=== PATIENT | male | born 1995 | race Two or more races ===

== ENCOUNTER 2024-11-27 16:30 | Emergency (ER) | payer MEDICAID, OTHER ==
[~2024-11-27] VITALS: Ht 175.3 cm; Wt 108.9 kg
--- NOTE | 2024-11-27 16:40 | ED.PDOC ---
General HPI Comments This is a 29 year old male presenting to the ED with chief complaint of dysuria. Patient reports that he has been experiencing dysuria with associated chills since yesterday. Patient relays that he had a vasectomy performed on 11/15, which went well and he has been keeping the surgical site clean. Patient denies any hematuria, abdominal pain, fever, dizziness, or N/V. Time Seen by MD: 16:37 Reviewed notes: Nurses Notes, Medications, Allergies Allergies: Coded Allergies: NO KNOWN ALLERGIES (Unverified , 11/27/24) Information Source: Patient Mode of Arrival: Ambulatory Severity: Moderate Timing: Days Duration: Since onset Prehospital treatment: None Onset: Spontaneous Symptoms: Dysuria, Other (Chills) History of: Recent post-op Location: None Penile discharge: None Modifying factors: None associated signs and symptoms: Dysuria Past Medical History PAST MEDICAL HISTORY: Denies Surgical History (Other): Vasectomy Family History Family History: Reviewed,noncontributory to illness Social History Smoker: Non-Smoker Alcohol: Denies ETOH Use Drugs: Denies Drug Use Lives In: Home Constitutional: reports: chills; denies: diaphoresis, fatigue, fever, malaise, sweats, weakness, others EENTM: denies: blurred vision, double vision, ear bleeding, ear discharge, ear drainage, ear pain, ear ringing, eye pain, eye redness, hearing loss, mouth pain, mouth swelling, nasal discharge, nose bleeding, nose congestion, nose pain, photophobia, tearing, throat pain, throat swelling, voice changes, others Respiratory: denies: cough, hemoptysis, orthopnea, SOB at rest, shortness of breath, SOB with excertion, stridor, wheezing, others Cardiovascular: denies: chest pain, dizzy spells, diaphoresis, Dyspnea on exertion, edema, irregular heart beat, left arm pain, lightheadedness, palpitations, PND, syncope, others Gastrointestinal: denies: abdomen distended, abdominal pain, blood streaked bowels, constipated, diarrhea, dysphagia, difficulty swallowing, hematemesis, melena, nausea, poor appetite, poor fluid intake, rectal bleeding, rectal pain, vomiting, others Genitourinary: reports: dysuria; denies: burning, flank pain, frequency, hematuria, incontinence, penile discharge, penile sore, pain, testicle pain, testicle swelling, urgency, others Neurological: denies: dizziness, fainting, headache, left sided numbness, left sided weakness, numbness, paresthesia, pre-existing deficit, right sided numbness, right sided weakness, seizure, speech problems, tingling, tremors, weakness, others Musculoskeletal: denies: back pain, gout, joint pain, joint swelling, muscle pain, muscle stiffness, neck pain, others Integumetry: denies: bruises, change in color, change in hair/nails, dryness, laceration, lesions, lumps, rash, wounds, others Allergic/Immunocompromised: denies: Difficulty Healing, Frequent Infections, Hives, Itching, others Hematologic/Lymphatic: denies: anemia, blood clots, easy bleeding, easy bruising, swollen glands, others Endocrine: denies: excessive hunger, excessive sweating, excessive thirst, excessive urination, flushing, intolerance to cold, intolerance to heat, unexplained weight gain, unexplained weight loss, others Psychiatric: denies: anxiety, bipolar disorder, depression, hopeless, panic disorder, schizophrenia, sleepless, suicidal, others All Other Systems: Reviewed and Negative Physical Exam General Appearance: No Apparent Distress, Normal HEENT: Normal ENT Inspection, Pharynx Normal, TMs Normal Neck: Full Range of Motion, Non-Tender, Normal, Normal Inspection Respiratory: Chest Non-Tender, Lungs Clear, No Accessory Muscle Use, No Respiratory Distress, Normal Breath Sounds Cardiovascular: No Edema, No JVD, No Murmur, No Gallop, Normal Peripheral Pulses, Regular Rate/Rhythm Breast Exam: Deferred Gastrointestinal: No Organomegaly, Non Tender, No Pulsatile Mass, Normal Bowel Sounds, Soft, Other (No suprapubic tenderness) Genitalia: Deferred Pelvic: Deferred Rectal: Deferred Extremities: No calf tenderness, Normal capillary refill, Normal inspection, Normal range of motion, Non-tender, No pedal edema Musculoskeletal : Apperance: Normal Neurologic: Alert, 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 Was a procedure done?: No Differential Diagnosis Kidney stone (Female): N/A Kidney stone (Male): N/A Penile/Scrotal: UTI X-Ray, Labs, Meds, VS Vital Signs Date Time Temp Pulse Resp B/P (MAP) Pulse Ox O2 Delivery O2 Flow Rate FiO2 11/27/24 17:00 101.0 11/27/24 17:00 101.0 11/27/24 16:46 101.0 94 20 128/71 (90) 98 101.0 Lab Test 11/27/24 16:44 Range/Units Urine Color Yellow Yellow Urine Clarity Clear Clear Urine pH 5.5 5.0-9.0 Urine Specific Gilbert 1.027 1.001-1.035 Urine Protein Negative Negative Urine Ketones Negative Negative Urine Blood Trace H Negative /uL Urine Nitrite Negative Negative Urine Bilirubin Negative Negative Urine Urobilinogen Normal Negative mg/dL Urine Leukocyte Esterase 1+ Negative /uL Urine RBC 2 0 - 3 /hpf Urine Microscopic WBC 9 H 0-3 /HPF Urine Squamous Epithelial Cells Few <5 /hpf Urine Bacteria None seen None Seen /hpf Urine Mucus Few None Seen Urine Glucose Normal Normal mg/dL Current Medications Medications (Trade) Dose Ordered Sig/Marlys Route Start Time Stop Time Status Last Admin Acetaminophen (Tylenol Tablet) 650 mg ONCE ONCE PO 11/27/24 17:00 11/27/24 17:01 DC 11/27/24 17:00 Time of 1ST Reevaluation: 17:37 Reevaluation 1ST: Unchanged Patient Education/Counseling: Diagnosis, Treatment Family Education/Counseling: No Family Present Additional Information Reviewed patient's previous visit(s): None The following tests were ordered, and results were reviewed by me: UA Additional information was gathered from interviewing the following independent historian: None I reviewed and agreed with the following test results read by other provider: None I discussed treatments and results with medical personnel and: Patient Comprehensive systems review obtained and negative except for what is stated in the HPI. SEPSIS Sepsis Screen Vital Signs Date Time Temp Pulse Resp B/P (MAP) Pulse Ox O2 Delivery O2 Flow Rate FiO2 11/27/24 17:00 101.0 11/27/24 17:00 101.0 11/27/24 16:46 101.0 94 20 128/71 (90) 98 101.0 Medications Medications Dose Ordered Sig/Marlys Route Start Time Stop Time Status Last Admin Dose Admin Acetaminophen 650 mg ONCE ONCE PO 11/27/24 17:00 11/27/24 17:01 DC 11/27/24 17:00 Departure 1 Departure Time of Disposition: 17:47 Impression: Primary Impression: UTI (urinary tract infection) Qualified Codes: N30.00 - Acute cystitis without hematuria Disposition: HOME / SELF CARE / HOMELESS Condition: Good e-Prescriptions Phenazopyridine HCl (Phenazopyridine Hydrochlo) 200 Mg Tab 200 MG PO TIDP PRN for 2 Days, #6 TAB Prov: LINNEA MCKNIGHT MD 11/27/24 Cephalexin Monohydrate (Cephalexin) 500 Mg Tab 1 TAB PO QID, #40 TAB Prov: LINNEA MCKNIGHT MD 11/27/24 Discharged With: Self Critical Care Note Critical Care Time?: No Stability Stability form required: No Heart Score Heart Score: Heart Score Response (Comments) Value History N/A 0 EKG N/A 0 Age N/A 0 Risk Factors N/A 0 Troponin N/A 0 Total 0 I personally scribed for LINNEA MCKNIGHT MD ([email or web address]) on 11/27/24 at 16:40. Electronically submitted by Frederic Balbuena ([email or web address]). LINNEA MCKNIGHT MD Nov 27, 2024 16:40
[2024-11-27] MEDS: ACETAMINOPHEN 325 MG TAB PO ONE ×2 (17:00)
[2024-11-27 17:38] LABS: Urine Protein, UAD Negative (Negative)
[2024-11-27] MEDS ORDERED: CEPH500T PO (17:49)
[2024-11-27] MEDS ORDERED: PHEN-922 PO (17:49)
[2024-11-27 17:57] VITALS: BP 137/71; PULSE 90; RESP 19; TEMP 100; O2SAT 95
[2024-11-27] MEDS: CEPHALEXIN 250 MG CAP PO ONE (18:21)
[2024-11-27] MEDS: PHENAZOPYRIDINE HCL 100 MG TAB PO ONE (18:21)
== END 2024-11-27 18:00 | disposition home or self-care (01) ==
LOC: ER 16:30
DX: N39.0 Urinary tract infection, site not specified (principal); Z98.890 Other specified postprocedural states
CPT/HCPCS: 81001